=== PATIENT | female | born 1975 | race Caucasian/White ===

== ENCOUNTER 2016-12-27 08:32 | Emergency (ER) | payer BC ==
[~2016-12-27] VITALS: Ht 170.2 cm; Wt 195.1 kg
--- NOTE | ~2016-12-27 | EKG ---
[place] [address] [address] [facility] [place] [address] ELECTROCARDIOGRAM REPORT Name: KAI IQBAL Room #: DEP [facility]#: [id number] Admission: 12/27/16 Attend Phys: Discharge: 12/27/16 Date of : 71 Report #: [id number] THIS REPORT FOR: //name// [facility] ED Test Date: 2016-12-27 Test Time: 08:46:06 Pat Name: KAI IQBAL Department: Room: Gender: [employer]: Anne FELIX : 1975 Requested By: Amy Ospina Order Number: [id number] MD: Mohit Carpio Measurements Intervals [place] Rate: 101 P: 37 MD: 143 QRS: 22 QRSD: 105 T: 10 QT: 344 QTc: 446 Interpretive Statements Sinus tachycardia Low voltage, precordial leads Baseline wander in lead(s) V1,V2 No previous ECG available for comparison Electronically Signed On 12-28-2016 8:08:49 CDT by Mohit Carpio [email or web address] <ELECTRONICALLY SIGNED> By: Mohit Carpio MD, [facility] 12/28/16 0808 5 Mohit Carpio MD, [facility] /EPI
[~2016-12-27 08:32] MED LIST: ASPIRIN325 PO; CIPROFLOXACIN500 M1 PO; LISINOPRIL20 MG PO; NEURONTIN 300300 M1 PO; NORCO 5-325 TA1 EACH PO; OXYCODONE HCL 55 MG PO; TRAMADOL 50 MG50 MG PO; XARELTO10 MG PO
[2016-12-27 09:16] LABS: BASOPHILS 0.8 % (0.0-2.0); EOSINOPHILS 2.5 % (0.0-3.0); HEMATOCRIT 41.1 % (37.0-47.0); HEMOGLOBIN 13.9 gm/dL (12.0-15.0); LYMPHOCYTES 25.5 % (24.0-44.0); MCH 27.8 pg (26.0-34.0); MCHC 33.7 g/dL (28.0-37.0); MCV 82.6 fL (80.0-100.0); MONOCYTES 7.3 % (1.0-8.0); PLATELET COUNT 334 thou/uL (150-400); POLYS 63.9 % (36.0-66.0); RBC 4.98 mil/uL (4.20-5.00); RDW 15.6 % (10.5-14.5)
[2016-12-27 09:20] LABS: MANUAL DIFF NO
[2016-12-27 09:26] LABS: ANION GAP 12 mmol/L (7-16); BUN 16 mg/dL (7-18); CALCIUM 9.2 mg/dL (8.5-10.1); CHLORIDE 102 mmol/L (98-107); CO2 22 mmol/L (21-32); CREATININE 0.8 mg/dL (0.6-1.0); GLUCOSE 172 mg/dL (74-106); POTASSIUM 4.4 mmol/L (3.5-5.1); SODIUM 136 mmol/L (136-145)
[2016-12-27 09:38] LABS: NT-PRO BRAIN NAT PEPTIDE 20 pg/mL (<300); TROPONIN-I < 0.04 ng/mL (<0.04-0.07)
[2016-12-27] MEDS ORDERED: CELEBREX 200 M200 M1 PO (10:06)
[2016-12-27] MEDS ORDERED: LISINOPRIL40 MG PO (10:06)
[2016-12-27] MEDS ORDERED: CARVEDILOL12.5 MG PO (10:06)
[2016-12-27] MEDS ORDERED: METFORMIN HCL500 MG PO (10:07)
[2016-12-27] MEDS ORDERED: XANAX1 MG PO (10:07)
[2016-12-27] MEDS ORDERED: LASIX 20 MG TAB20 MG PO (12:39)
== END 2016-12-27 13:11 | disposition home or self-care (01) ==
LOC: ER 08:32
PROVIDERS: Emergency Medicine
DX: R60.0 Localized edema (principal); R06.00 Dyspnea, unspecified; R20.2 Paresthesia of skin; I11.0 Hypertensive heart disease with heart failure; I50.9 Heart failure, unspecified; Z90.49 Acquired absence of other specified parts of digestive tract; Z96.659 Presence of unspecified artificial knee joint